=== PATIENT | female | born 1965 | race Caucasian/White ===

== ENCOUNTER 2021-03-10 16:10 | Outpatient (CLI) | payer BC, SELFPAY | END 2021-03-10 16:11 | disposition home or self-care (01) | LOC: ANHCOVIDVC 16:10 | PROVIDERS: PCP Nurse Practitioner Family | DX: Z23 Encounter for immunization (principal) | CPT/HCPCS: 0001A; 91300 ==

== ENCOUNTER 2021-03-31 17:01 | Outpatient (CLI) | payer BC, SELFPAY | END 2021-03-31 17:02 | disposition home or self-care (01) | LOC: ANHCOVIDVC 17:01 | PROVIDERS: PCP Nurse Practitioner Family | DX: Z23 Encounter for immunization (principal) | CPT/HCPCS: 0002A; 91300 ==

== ENCOUNTER 2021-07-28 13:30 | Outpatient (RCR) | payer BC, SELFPAY ==
--- NOTE | 2021-06-16 15:53 | PTOPEVAL ---
PHYSICAL THERAPY EVALUATION Thank you for referring Deanna Ahumada to [facility].? Carmen was evaluated for the dx of cervical radiculopathy. The patient is scheduled to be seen for therapy?1 x/week for 6 weeks (weekly frequency per pt request due to work schedule issues). Please review, sign, date and return this plan of care BAYRON. I agree with and certify that the following plan of care is medically necessary. Referring Physician Date Attending Provider: BAYLEE CALIX, DENISE *PT Outpatient Evaluation Start: 06/16/21 14:30 Freq: Status: Active Protocol: Document 06/16/21 14:30 MLV (Rec: 06/16/21 15:41 MLV [id number]) Therapy Assessment Status Assessment Status Assessment Status Evaluation Evaluation Information Problem Diagnosis left cervical radiculopathy Onset 6 months ago Cause no new injury Additional Evaluation Detail The patient reports mainly left arm/hand tingling that started about 6 months ago and has left thumb pain/stiffness that is worse in the am. 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 The patient is right hand dominant. The patient does her own yardwork and housework; the patient goes to the gym regularly and uses the machines and does spin class on occasion. The patient has symptoms at left arm with sidelying and when doing her hair. The patient also gets numbness when driving. Diagnostic Tests X-Rays For This Problem Yes: OA at neck and back Pain Assessment Timing of Pain Assessment Timing of Pain Assessment Assessment Pain Scale Pain Scale Used Numeric (1 - 10) Self Report Pain Assessment Left Arm(s) Reported Pain Level 0 Pain Description Numbness,Tingling Radicular Pain Location 4 with doing her hair, 7 with sidelying/sleeping Pain Frequency Acute,Chronic Pain Aggravating Factors Lifting,Prolonged Position Pain Behaviors None Pain Score Pain Score 0: Self Report Interventions Used Interventions Used By Clinicians Education Pain Relief Interventions Used By Chiropractic,Exercise,Position Patient
--- NOTE | 2021-06-23 13:08 | PCPTNOTE ---
Patient called to cancel stating she has a work conflict.
--- NOTE | 2021-06-30 16:41 | PCPTNOTE ---
Patient called to cancel appointment due to work conflict.
--- NOTE | 2021-07-28 14:16 | PTOPEVAL ---
PHYSICAL THERAPY DISCHARGE Thank you for referring Deanna Ahumada to [facility].? The patient has completed 5 visits for the dx of left radiculopathy with goals met. DC PT. Please review, sign, date and return this plan of care BAYRON. I agree with and certify the following plan of care. Referring Physician Date Attending Provider: BAYLEE CALIX, DENISE *PT Outpatient Discharge Start: 06/16/21 14:30 Freq: Status: Active Protocol: Document 07/28/21 13:35 MLV (Rec: 07/28/21 14:12 MLV [id number]) Therapy Assessment Status Assessment Status Assessment Status Discharge Evaluation Information Problem Diagnosis left cervical radiculopathy Onset 6 months ago Cause no new injury Additional Evaluation Detail The patient reports a relief of tingling symptoms at her left arm and feels when she may get symptoms, she knows what to do to manage them. The patient reports relief from the manual therapy here and her massages she has gotten. Pt voices concern about possible Dupytrens contr- acture at right hand. Pain Assessment Timing of Pain Assessment Timing of Pain Assessment Assessment Self Report Self Report Pain Level 0 Pain Score Pain Score 0: Self Report Cervical and Lumbar ROM Cervical ROM Cervical Flexion (0-60) 65 Query Text:Active in Degrees Cervical Extension (0-70) 49 Query Text:Active in Degrees Cervical Lateral Flexion Right (0-50) 49 Query Text:Active in Degrees Cervical Lateral Flexion Left (0-50) 48 Query Text:Active in Degrees Cervical Rotation Right (0-90) 70 Query Text:Active in Degrees Cervical Rotation Left (0-90) 68 Query Text:Active in Degrees Upper Extremity Muscle Strength Testing General Upper Extremity Strength Reason Not Measured WNL/Left,WNL/Right Gross Upper Extremity Strength Comments lower traps anu. improving with an increased tolerance to weighted exercises; pt demonstrates good technique w/ o cues for all exercises Posture Posture Standing Position Additional Posture Comments posture improved with a decreased head forward, decreased shoulders rounding/ forward positioning and cues not required to correct Palpation Assessment Palpation Palpation 50% decrease in cervical parasp
== END 2021-07-28 17:20 | disposition home or self-care (01) ==
LOC: ANHPT 13:30
PROVIDERS: PCP Nurse Practitioner Family; Visit Provider Nurse Practitioner Family
DX: M54.2 Cervicalgia (principal); M54.12 Radiculopathy, cervical region; R20.0 Anesthesia of skin; R20.2 Paresthesia of skin; G89.29 Other chronic pain
CPT/HCPCS: 97014; 97110; 97140; 97162; G0283

== ENCOUNTER 2022-02-02 13:15 | Outpatient (CLI) | payer BC, SELFPAY ==
--- NOTE | ~2022-02-02 | MM_ITS ---
EXAMINATION: MM scrn eleno implant BI w twyla HISTORY: Screening mammogram TECHNIQUE: Craniocaudal and mediolateral oblique 3-D tomosynthesis images with implant displacement a nd synthetic 2-D images were generated. Craniocaudal and mediolateral oblique views of the breasts wi thout implant displacement were obtained using full field digital mammography. CAD analysis was submi tted and interpreted. COMPARISON: 01/27/2016 BREAST PARENCHYMAL COMPOSITION: There are scattered areas of fibroglandular density. FINDINGS: There is no evidence of suspicious mass, calcification, or architectural distortion to sugg est malignancy in either breast. There has been no suspicious interval change. IMPRESSION: 1. No mammographic evidence of malignancy. 2. Recommend routine screening mammography in one year. BI-RADS Category 1: Negative Reviewed, dictated and finalized at location A. RVISORY FORESTER
== END 2022-02-02 13:16 | disposition home or self-care (01) ==
LOC: ANHIMG 13:17
PROVIDERS: PCP Nurse Practitioner Family; Visit Provider Obstetrics & Gynecology
DX: Z12.31 Encounter for screening mammogram for malignant neoplasm of breast (principal)
CPT/HCPCS: 77063; 77067

== ENCOUNTER 2024-01-17 14:25 | Outpatient (CLI) | payer BC, SELFPAY ==
--- NOTE | ~2024-01-17 | MM_ITS ---
EXAMINATION: MM scrn eleno implant BI w twyla HISTORY: Screening mammogram TECHNIQUE: Craniocaudal and mediolateral oblique 3-D tomosynthesis images with implant displacement a nd synthetic 2-D images were generated. Craniocaudal and mediolateral oblique views of the breasts wi thout implant displacement were obtained using full field digital mammography. CAD analysis was submi tted and interpreted. COMPARISON: Comparison to multiple prior studies sequentially, with oldest reviewed study dated . BREAST PARENCHYMAL COMPOSITION: There are scattered areas of fibroglandular density. FINDINGS: There is no evidence of suspicious mass, calcification, or architectural distortion to sugg est malignancy in either breast. There has been no suspicious interval change. IMPRESSION: 1. No mammographic evidence of malignancy. 2. Recommend routine screening mammography in one year. BI-RADS Category 1: Negative Reviewed, dictated and finalized at location A. RICT MANAGER
== END 2024-01-17 14:26 | disposition home or self-care (01) ==
LOC: ANHIMG 14:27
PROVIDERS: PCP Nurse Practitioner Family; Visit Provider Obstetrics & Gynecology
DX: Z12.31 Encounter for screening mammogram for malignant neoplasm of breast (principal)
CPT/HCPCS: 77063; 77067

== ENCOUNTER 2024-03-13 15:07 | Outpatient (CLI) | payer BC, SELFPAY ==
--- NOTE | ~2024-03-13 | US_ITS ---
EXAMINATION: US pelvic complete w TV DATE: 03/13/2024 15:25 INDICATION: Abnormal Pap smear. HPV. Bloating. TECHNIQUE: Multiple transabdominal and transvaginal sonographic images of the pelvis were obtained. COMPARISON: None. FINDINGS: TRANSABDOMINAL ULTRASOUND: The uterus measures 5.6 x 2.5 x 3.5 cm. There is no free fluid in the pelvis. TRANSVAGINAL ULTRASOUND: The endometrial complex measures 3 mm in thickness. The ovaries are not visualized. IMPRESSION: 1. Normal uterus. 2. Ovaries not visualized. Reviewed, dictated and finalized at location E.
== END 2024-03-13 15:08 ==
LOC: MICIMG 15:08
PROVIDERS: PCP Nurse Practitioner Family; Visit Provider Nurse Practitioner Family
DX: R87.618 Other abnormal cytological findings on specimens from cervix uteri (principal); R14.0 Abdominal distension (gaseous); R10.2 Pelvic and perineal pain
CPT/HCPCS: 76830; 76856

== ENCOUNTER 2025-07-23 15:34 | Outpatient (CLI) | payer BC, SELFPAY ==
--- NOTE | ~2025-07-23 | MM_ITS ---
EXAMINATION: screening [facility] BI w twyla INDICATION: Asymptomatic, referred for screening mammogram COMPARISON: 01/17/2024 TECHNIQUE: Digital Breast Tomosynthesis CC, MLO, and implant displaced CC and MLO views of Both breasts were obtained with computer-aided detection to assist in interpretation of the study. FINDINGS: There are scattered areas of fibroglandular density. Bilateral breast Retropectoral Silicone implants in place appears intact. No focal dominant mass, architectural distortion, or suspicious microcalcifications are identified. There are no features to suggest malignancy. IMPRESSION: 1. No evidence of malignancy in the breasts. 2. Both breasts Retropectoral Silicone implants appears intact. Recommend continued screening mammography BI-RADS 1, NEGATIVE Reviewed, dictated and finalized at location C.
--- OUTSIDE RECORDS SUMMARY | 2025-07-23 15:40 | XMS_ITS | Clinical Summary ---
Author Organization [facility] Address [address], [facility] [address] [place] [address] Phone Care Team Providers Care Pipe And Tank Fabricator Name Role Phone Spenser Villavicencio MD Primary Care Provider Sherman Henderson DO Unavailable [phone] Allergies Active Allergy Reactions Criticality Noted Date Comments Penicillins Unknown 01/01/2017 Medications polyethylene glycol (MIRALAX) Powder Mix the entire bottle with 64 oz of a clear liquid. Use as directed by the office for colonoscopy prep. 255 g 0 6 Active sucralfate (CARAFATE) 1 GM/10ML Suspension Take 10 mL by mouth 4 times daily (before meals and nightly). 420 mL 2 6 Active VYVANSE 60 MG Capsule Take 1 Cap by mouth daily. 0 7 Active omeprazole (PRILOSEC) 40 MG CAPSULE DELAYED RELEASE Take 40 mg by mouth daily. Active Family History Medical History Relation Name Comments Colon Cancer Father Lung Cancer Mother Relation Name Status Comments Father Mother Social History Tobacco Use Types Packs/Day Years Used Date Smoking Tobacco: Never Smokeless Tobacco: Never Alcohol Use Standard Drinks/Week Comments Yes 0 (1 standard drink = 0.6 oz pur e alcohol) Rarely Comments Unknown Sex and Gender Information Value Date Recorded Sex Assigned at Not on file Legal Sex Female 11:46 PM CDT Gender Identity Not on file Sexual Orientation Not on file Plan of Treatment Health Maintenance Due Date Last Done Comments Hepatitis C Virus (HCV) Screening 1965 Hepatitis B Immunization (1 of 3 - 19+ 3-dose series) 1984 Pap Smear 1986 Cervical Cancer Screening (CCS) 1995 HPV/Cotest 1995 Cologuard 2010 Colonoscopy 2010 Colorectal Cancer Screening 2010 Immunochemical Fecal Occult Blood 2010 Pneumococcal Immunization (5 0+ years) (1 of 1 - PCV) 2015 Zoster Immunization (1 of 2) 2015 SARS-COV-2 Immunization (4 - season) 2024 11/03/2021, 03/31/2021, 03/10/2021 Influenza Immunization (#1) 2025 2012 Respiratory Syncytial Virus (RSV) Immunization (Adult) (1 - 1-dose 75+ series) 2040 DTaP/Tdap/Td Immunization Discontinued 09/11/2019 TdaP Immunization Completed 09/11/2019 Human Papillomavirus (HPV) Immunization Aged Out No longer eligible based on patient's age to complete this topic Meningococcal Immunization (ACWY) Aged Out No longer eligible based on patient's age to complete this topic Rotavirus Immunization Aged Out No lo nger eligible based on patient's age to complete this topic Care Teams Pipe And Tank Fabricator Relationship Specialty Start Date End Date Spenser Villavicencio MD [address] [place] [address] PCP - General Family Medicine 06/15/16 Sherman Henderson DO [address] [place] [address] Gastroenterology 06/15/16
--- OUTSIDE RECORDS SUMMARY | 2025-07-23 15:40 | XMS_ITS | Clinical Summary ---
Author Organization [facility] Address [address] [place] [address] Care Team Providers Care Bowling Ball Assembler Name Role Phone Dennise Bojorquez Primary Care Provider [phone] Allergies Active Allergy Reactions Criticality Noted Date Comments Penicillins Unknown 11/19/2014 Medications multivitamins-min JASMYNE archibald, chewable tablet Chew 1 tablet by mouth daily. Active pantoprazole EC (PROTONIX) 40 MG tabletIndications :Bernabe's esophagus without dysplasia Take 1 tablet (40 mg total) by mouth daily. 90 tablet 3 5 12/25/19 26 Active ALPRAZolam (XANAX) 0.5 MG tabletIndications :Anxiety Take 1 tablet (0.5 mg total) by mouth 2 (two) times daily as needed. 60 tablet 2 5 Active lisdexamfetamine (VYVANSE) 60 MG capsuleIndication s:Attention deficit hyperactivity disorder (ADHD), predominantly inattentive type Take 1 capsule (60 mg total) by mouth every morning. 30 capsule 5 Active ALPRAZolam (XANAX) 0.5 MG tabletIndications :Anxiety Take 1 tablet (0.5 mg total) by mouth 2 (two) times daily as needed. 60 tablet 2 5 07/09/20 25 Discontinu ed(Reorder ) lisdexamfetamine (VYVANSE) 60 MG capsuleIndication s:Attention deficit hyperactivity disorder (ADHD), predominantly inattentive type Take 1 capsule (60 mg total) by mouth every morning. 30 capsule 5 07/09/20 25 Discontinu ed(Reorder ) Active Problems Problem Noted Date Diagnosed Date Multiple gastric ulcers 01/01/2025 Bernabe's esophagus without dysplasia 08/28/2024 Pap smear abnormality of cer vix/human papillomavirus (HPV) positive 03/03/2024 HPV exposure 03/03/2024 Long-term use of high-risk medication 07/16/2023 Neck pain, chronic 05/05/2021 Post-menopausal 05/05/2021 Plantar fasciitis of right foot 05/05/2021 Body mass index (BMI) of 24.0 to 24.9 in adult 0 05/05/2021 Attention deficit hyperactiv ity disorder (ADHD), predominantly inattentive type 12/11/2020 Mixed hyperlipidemia 09/13/2019 Menopausal vaginal dryness 05/09/2018 Vitamin D deficiency 12/06/2017 Elevated CK 11/16/2016 Elevated liver enzymes 11/16/2016 Polyarthralgia 11/12/2016 Anxiety 07/16/2016 GERD (gastroesophageal reflux disease) 6 Abnormal mammogram 01/28/2016 Breast mass, right 01/23/2016 Resolved Problems Problem Noted Date Diagnosed Date Resolved Date Bloating 03/03/2024 03/22/2025 Pelvic pain 03/03/2024 03/22/2025 Numbness and tingling of left thumb 05/05/2021 03/22/2025 Left cervical radiculopathy 05/05/2021 03/22/2025 Screening for colon cancer 09/13/2019 0 08/09/2020 Need for hepatitis C screening test 09/13/2019 08/09/2020 Immunity status testing 09/13/2019 06/0 05/2021 Chronic sinusitis, unspecified location 09/13/2019 05/05/2021 Right shoulder pain 03/16/2018 05/05/20 21 Missed period 11/12/2016 05/05/2021 Muscular aches 11/12/2016 05/05/2021 Neck pain 01/23/2016 05/05/2021 Thoracic back pain 01/23/2016 Spider veins 01/21/2015 03/22/2025 ADD (attention deficit disor marilia) without hyperactivity 11/19/2014 05/05/2021 Encounters Date Type Department Care Team Description 06/04/2025 Telephone [facility] Family & Internal Medicine [address] [address] Dennise Bojorquez FNP Refill Request 04/26/2025 Telephone [facility] Family & Internal Medicine [address] [phone] Dennise Bojorquez FNP Medication Request from Last 3 Months Immunizations Immunization Administration Dates Next Due Fluzone 6 Months+ Quad (0.5 mL Prefilled Syringe) 11/09/2022 Influenza Adult (Generic) 2012 MMR (MMRII) 11/15/2019 PFIZER COVID-19 (ESCOBAR CAP), MRNA, LNP-S, PF, 30 MCG/0.3 ML ROBERTA-SUCROSE, IM 03/30/2022 PFIZER COVID-19 (ORIGINAL FO RMULATION, PURPLE CAP) mRNA, LNP-S, PF, 30 MCG/0.3 ML DOSE 11/03/2021,03/31/2021,03/10/2021 PFIZER COVID-19 BIVALENT (12 +) mRNA, LNP-S, PF, 30 MCG/0.3 ML DOSE 09/07/2022 Tdap (Boostrix) 09/11/2019 Family History Medical History Relation Comments Cancer Father colon cancer Cancer Maternal Grandmother Cancer Mother lung Obesity Sister Relation Status Comments Father (Age 80) Maternal Grandmother Mother Sister Social History Tobacco Use Types Packs/Day Years Used Date Smoking Tobacco: Never Smokeless Tobacco: Never Tobacco Cessation:Counseling Given: No Alcohol Use Standard Drinks/Week Comments Not Currently 6.7 (1 standard drink = 0.6 oz p ure alcohol) AUDIT-C Answer Date Recorded Frequency of Alcohol Consumption Never 09/11/2019 Average Number of Drinks Not on file 019 Frequency of Binge Drinking Not on file 08/29 PHQ-2 Answer Date Recorded Patient Health Questionnaire-2 Score 0 03/22/2025 Comments No Sex and Gender Information Value Date Recorded Sex Assigned at Female 12/25/2024 2:15 PM DRYWALL STRIPPER Legal Sex Female 1:22 PM DRYWALL STRIPPER Gender Identity Not on file Sexual Orientation Not on file Last Filed Vital Signs Vital Sign Reading Time Taken Comments Blood Pressure 125/63 03/26/2025 11:50 AM CDT Pulse 64 03/26/2025 11:55 AM CDT Temperature 36.3 C (97.4 F) 03/26/2025 11:25 AM CDT Respiratory Rate 17 03/26/2025 11:55 AM CDT Oxygen Saturation 100% 03/26/2025 11:55 AM CDT Inhaled Oxygen Concentration - - Weight 64.2 kg (141 lb 9.6 oz) 03/22/2025 10:53 AM CDT Height 160 cm (5' 3) 03/22/2025 10:53 AM CDT Body Mass Index 25.08 03/22/2025 10:53 AM CDT Plan of Treatment Health Maintenance Due Date Last Done Comments Cervical Cancer Screening Pap Smear (Age 30 to 64) Every 3 Years 1965 Annual Physical 1968 Cervical Cancer Screening Pap with HPV Testing (Age 30 to 64) Every 5 Years 1995 Pneumococcal Vaccine: 50+ Years (1 of 1 - PCV) 2015 Mammogram Screening 01/17/2026 01/17/2024, Cervical Cancer Screening with HPV 03/22/2026 Postponed from 1995 (Going to Outside Clinic) Zoster Vaccines (1 of 2) 03/22/2026 Pos tponed from 2015 (Patient Refused) Colorectal Cancer Screening FIT-DNA (3 Years) 08/30/2026 08/30/2023, 08/30/2023, 09/20/2019 EGD-Bernabe's Surveillance 12/25/2027 12/25/2024 DTaP, Tdap and Td Vaccines (2 - Td or Tdap) 09/11/2029 09/11/2019 Hepatitis C Completed 09/11/2019 COVID-19 Vaccine Completed 08/07/2024, , 09/07/2022, Additional history exists PHQ-2 (Physician [place]) Completed 03/22/2025 Meningococcal B Vaccine Aged Out No l onger eligible based on patient's age to complete this topic Meningococcal Vaccine Aged Out No lenka florinda eligible based on patient's age to complete this topic RSV Immunizations Under 20 Months Aged Out No longer eligible based on patient's age to complete this topic Procedures Procedure Name Priority Date/Time Associated Diagnosis Comments EGD Routine 12/25/2024 2:41 PM DRYWALL STRIPPER MAMMOGRAM GENERIC (SCAN ORDER) 01/17/2024 COLOGUARD (EXACT SCIENCE) Routine 08/30/2023 1:30 PM CDT Screening for colon cancer HEPATITIS C ANTIBODY Routine 09/11/2019 9:48 AM CDT Need for hepatitis C screening test from Last 3 Months or Most Recently Relevant to Health Maintenance Results * MAMMOGRAM GENERIC (SCAN ORDER) (01/17/2024) Anatomical Region Laterality Modality Other 01/17/2024 us Doc [facility] Scanned SCANNING Final Resu lt * COLOGUARD (EXACT SCIENCE) (08/30/2023 1:30 PM CDT) COLOGUARD RESULT Negative Negative [facility] [employer] (CLIA #:[id number]) Comment: NEGATIVE TEST RESULT. A negative Cologuard result indicates a low likelihood that a colorectal cancer (CRC) or advanced adenoma (adenomatous polyps with more advanced pre-malignant features) is present. The chance that a person with a negative Cologuard test has a colorectal cancer is less than 1 in 1500 (negative predictive value >99.9%) or has an advanced adenoma is less than 5.3% (negative predictive value 94.7%). These data are based on a prospective cross-sectional study of 10,000 individuals at average risk for colorectal cancer who were screened with both Cologuard and colonoscopy. (Josafat Avila al, N Engl J Med 2014;370(14):7925-7046) The normal value (reference range) for this assay is negative. COLOGUARD RE-SCREENING RECOMMENDATION: Periodic colorectal cancer screening is an important part of preventive healthcare for asymptomatic individuals at average risk for colorectal cancer. Following a negative Cologuard result, the [place] Cancer Society and U.S. Multi-Society Task Force screening guidelines recommend a Cologuard re-screening interval of 3 years. References: [place] [employer] Guideline for Colorectal Cancer Screening: https://www.cancer.org/cancer/pjyjl-peuqic-drniqo/uavpydhdo-ofuvbfsjc-lfaznmj/ac s-rec ommendations.html.; Troy CASE, Jessika CR, Champ HAYES, Colorectal Cancer Screening: Recommendations for Physicians and Patients from the U.S. Multi-Society Task Force on Colorectal Cancer Screening , Am J Gastroenterology 2017; 112:5102-4764. TEST DESCRIPTION: Composite algorithmic analysis of stool DNA-biomarkers with hemoglobin immunoassay. Quantitative values of individual biomarkers are not reportable and are not associated with individual biomarker result reference ranges. Cologuard is intended for colorectal cancer screening of adults of either sex, 45 years or older, who are at average-risk for colorectal cancer (CRC). Cologuard has been approved for use by the U.S. FDA. The performance of Cologuard was established in a cross sectional study of average-risk adults aged 50-84. Cologuard performance in patients ages 45 to 49 years was estimated by sub-group analysis of near-age groups. Colonoscopies performed for a positive result may find as the most clinically significant lesion: colorectal cancer [4.0%], advanced adenoma (including sessile serrated polyps greater than or equal to 1cm diameter) [20%] or non- advanced adenoma [31%]; or no colorectal neoplasia [45%]. These estimates are derived from a prospective cross-sectional screening study of 10,000 individuals at average risk for colorectal cancer who were screened with both Cologuard and colonoscopy. (Josafat Pace. et al, N Engl J Med 2014;370(14):1707-8477.) Cologuard may produce a false negative or false positive result (no colorectal cancer or precancerous polyp present at colonoscopy follow up). A negative Cologuard test result does not guarantee the absence of CRC or advanced adenoma (pre-cancer). The current Cologuard screening interval is every 3 years. ([place] [employer] and U.S. Multi-Society Task Force). Cologuard performance data in a 10,000 patient pivotal study using colonoscopy as the reference method can be accessed at the following location: www.Triond.com/results. Additional description of the Cologuard test process, warnings and precautions can be found at www.cologuard.com. STOOL STOOL SPECIMEN / Unknown 08/30/2023 1:30 PM CDT 08/31/2023 5:11 PM CDT Dennise SANCHEZP BODY FLUIDS AND STOOLS ORDERAB LES Final Result Performing Organization Address City/[facility] Co de Phone Number [facility] [facility] ([facility] [address] [facility]) [address] [place] [address], [employer] (CLIA #:[id number]) [address] [place] [address] * HEPATITIS C ANTIBODY (09/11/2019 9:48 AM CDT) HEPATITIS C AB NON-REACT ROSITA NON-REACT ROSITA [facility] SIGNAL TO CUTOFF 0.18 <1.[address] [facility] Comment: HCV antibody was non-reactive. There is no laboratory evidence of HCV infection. In most cases, no further action is required. However, if recent HCV exposure is suspected, a test for HCV RNA (test code 48697) is suggested. For additional information please refer to http://education.AIM/faq/FMC94o9 (This link is being provided for informational/ educational purposes only.) 09/11/2019 9:48 AM CDT 09/12/2019 5:10 AM CDT Narrative Resulting Agency Comment Performing Organization Information: Site ID: [place] Name: [facility] Address: [address] [place] [address] Director: Jax Orlando D.O., MPH us Dennise Bojorquez APPARATUS OPERATOR LABORATORY Final Result Performing Organization Address [facility] Co de Phone Number [facility] from Last 3 Months or Most Recently Relevant to Health Maintenance Insurance [facility] Care Teams Bowling Ball Assembler Relationship Specialty Start Date End Date Dennise Bojorquez FNP [address] [place] [id number] PCP - General FAMILY PRACTICE 10/11/18
== END 2025-07-23 15:35 | disposition home or self-care (01) ==
PROVIDERS: PCP Nurse Practitioner Family; Visit Provider Obstetrics & Gynecology
DX: Z12.31 Encounter for screening mammogram for malignant neoplasm of breast (principal)
CPT/HCPCS: 77063; 77067